=== PATIENT | male | born 1995 | race Caucasian/White ===

== ENCOUNTER 2016-08-24 19:45 | Emergency (ER) | payer OTHER ==
[~2016-08-24] VITALS: Ht 193 cm; Wt 75.0 kg
[~2016-08-24 19:45] MED LIST: TAMIFLU 75MG75 MG PO
[2016-08-24 19:49] VITALS: TEMP 97.8
[2016-08-24] MEDS ORDERED: PROZAC 20MG20 MG PO (19:52)
[2016-08-24] MEDS ORDERED: ADDERALL20 MG PO (19:52)
[2016-08-24 20:30] LABS: BASO # 0.1 (0.0-0.2); BASO % 0.6 % (0.0-2.0); EOS # 0.5 (0.0-0.7); EOS % 3.9 % (0-4.0); GRAN # 8.3 (1.4-6.5); GRAN % 66.8 % (42.2-75.2); HEMATOCRIT 44.1 % (36.0-47.0); HEMOGLOBIN 15.5 g/dl (12.5-16.1); LYMPH # 2.4 (1.2-3.4); LYMPH % 19.4 % (20.0-51.0); MEAN CELL VOLUME 84 fl (80.0-95.0); MEAN CORPUSCULAR HEMOGLOBIN 29 pg (26.0-32.0); MEAN CORPUSCULAR HGB CONC 35 g/dl (33.0-37.0); MEAN PLATELET VOLUME 10.5 fl (7.4-10.4); MONO # 1.1 (0.1-0.6); MONO % 9.1 % (1.7-9.3); PLATELET COUNT 305 K/mm3 (130-400); RED BLOOD COUNT 5.27 M/mm3 (4.20-5.60); REDCELL DISTRIBUTION WIDTH-CV 12.3 % (11.5-14.5); WHITE BLOOD COUNT 12.5 K/mm3 (4.8-10.8)
[2016-08-24 20:34] LABS: AMPHETAMINE URINE NEGATIVE; BARBITURATES URINE NEGATIVE; BENZODIAZEPINES URINE NEGATIVE; BUPRENORPHINE URINE NEGATIVE; METHADONE URINE NEGATIVE; OPIATES URINE NEGATIVE; OXYCODONE URINE NEGATIVE; PHENCYCLIDINE URINE NEGATIVE; PROPOXYPHENE URINE NEGATIVE; THC CANNABINOIDS URINE POSITIVE
[2016-08-24 20:45] LABS: ADJUSTED CALCIUM 9.4 mg/dL (8.4-10.2); ALANINE AMINOTRANSFERASE 28 U/L (21-72); ALBUMIN 4.5 gm/dL (3.5-5.0); ALKALINE PHOSPHATASE 39 U/L (50-136); ANION GAP 16 mmol/L (7-16); BLOOD UREA NITROGEN 11 mg/dL (9-20); CALCIUM 9.8 mg/dL (8.4-10.2); CARBON DIOXIDE 19 mmol/L (22-30); CHLORIDE 105 mmol/L (98-107); CREATININE, serum 0.97 mg/dL (0.66-1.25); GLUCOSE 90 mg/dL (74-106); PHOSPHOROUS 2.4 mg/dL (2.5-4.5); POTASSIUM 3.7 mmol/L (3.4-5.0); SODIUM 141 mmol/L (137-145); TOTAL PROTEIN 7.8 gm/dL (6.4-8.2)
[2016-08-24 20:46] LABS: ACETAMINOPHEN < 10 ug/mL (10-30); SALICYLATE < 1.0 mg/dL
[2016-08-24] MEDS ORDERED: LEXAPRO20 MG PO (23:39)
[2016-08-25 06:53] VITALS: BP 134/90; PULSE 68
== END 2016-08-25 07:25 ==
LOC: COL.ER 19:45
PROVIDERS: Emergency Medicine
DX: F33.2 Major depressive disorder, recurrent severe without psychotic features (principal); R45.851 Suicidal ideations; F41.1 Generalized anxiety disorder; F10.120 Alcohol abuse with intoxication, uncomplicated; Y90.6 Blood alcohol level of 120-199 mg/100 ml

== ENCOUNTER 2017-04-01 22:12 | Emergency (ER) | payer SELFPAY ==
[~2017-04-01] VITALS: Ht 193 cm; Wt 79.5 kg
[~2017-04-01 22:12] MED LIST changes: +ADDERALL20 MG PO; +LEXAPRO20 MG PO; +PROZAC 20MG20 MG PO
[2017-04-01 22:16] VITALS: TEMP 97.2
[2017-04-01 22:46] LABS: BASO % 0.3 % (0.0-2.0); EOS # 0.1 (0.0-0.7); EOS % 1.4 % (0-4.0); GRAN # 6.9 (1.4-6.5); GRAN % 76.9 % (42.2-75.2); HEMATOCRIT 43.3 % (42.0-52.0); HEMOGLOBIN 15.2 g/dl (13.5-18.0); LYMPH # 1.2 (1.2-3.4); LYMPH % 13.1 % (20.0-51.0); MEAN CELL VOLUME 85 fl (80.0-100.0); MEAN CORPUSCULAR HEMOGLOBIN 30 pg (27.0-31.0); MEAN CORPUSCULAR HGB CONC 35 g/dl (33.0-37.0); MEAN PLATELET VOLUME 10.1 fl (7.4-10.4); MONO # 0.7 (0.1-0.6); PLATELET COUNT 305 K/mm3 (130-400); RED BLOOD COUNT 5.07 M/mm3 (4.20-5.60)
[2017-04-01 23:00] LABS: ADJUSTED CALCIUM 9.2 mg/dL (8.4-10.2); ALANINE AMINOTRANSFERASE 41 U/L (21-72); ALBUMIN 4.7 gm/dL (3.5-5.0); ALKALINE PHOSPHATASE 39 U/L (50-136); ANION GAP 16 mmol/L (7-16); BILIRUBIN,TOTAL 1.1 mg/dL (0.0-1.0); BLOOD UREA NITROGEN 10 mg/dL (9-20); CALCIUM 9.8 mg/dL (8.4-10.2); CARBON DIOXIDE 18 mmol/L (22-30); CHLORIDE 102 mmol/L (98-107); CREATININE, serum 1.14 mg/dL (0.66-1.25); GLUCOSE 104 mg/dL (74-106); POTASSIUM 3.8 mmol/L (3.4-5.0); SODIUM 136 mmol/L (137-145); TOTAL PROTEIN 7.2 gm/dL (6.4-8.2)
[2017-04-01 23:01] LABS: ALCOHOL(ethanol),MEDICAL < 10 mg/dL
[2017-04-01 23:16] LABS: PROLACTIN 38.2 ng/mL (3.7-17.9)
[2017-04-01 23:23] LABS: INR 1.1 (0.8-3.0); PROTHROMBIN TIME 12.7 SECONDS (9.7-12.8)
[2017-04-01 23:26] LABS: PARTIAL THROMBOPLASTIN TIME 25.6 SECONDS (26.0-37.0)
[2017-04-02 00:20] VITALS: BP 135/82; PULSE 100
== END 2017-04-02 00:10 | disposition short-term general hospital (02) ==
LOC: COL.ER 22:12
PROVIDERS: Emergency Medicine
DX: R56.9 Unspecified convulsions (principal); J45.909 Unspecified asthma, uncomplicated; F90.9 Attention-deficit hyperactivity disorder, unspecified type
CPT/HCPCS: J1953; J2060; J2405; J7030; Q2009